=== PATIENT | female | born 1935 | race Caucasian/White ===

== ENCOUNTER → 2017-10-10 | Outpatient (CLI) | payer MEDICARE ==
[~2017-10-10] MED LIST: OMNIPAQUE 350 MG/ML, 100ML BOTTLE ONE; SIMV20TA3 PO
== END | disposition home or self-care (01) ==
LOC: CFH 11:44
PROVIDERS: ATTEND Internal Medicine
DX: K76.89 Other specified diseases of liver (principal); R63.4 Abnormal weight loss; R13.10 Dysphagia, unspecified; R68.81 Early satiety
CPT/HCPCS: 71260; 74160; 82565; Q9967

== ENCOUNTER → 2017-10-11 | Outpatient (CLI) | payer MEDICARE ==
[~2017-10-11] MED LIST changes: -OMNIPAQUE 350 MG/ML, 100ML BOTTLE ONE
== END | disposition home or self-care (01) ==
LOC: PETCFH 07:59
PROVIDERS: ATTEND Internal Medicine
DX: R68.81 Early satiety (principal); R13.10 Dysphagia, unspecified
CPT/HCPCS: 78264; A9541

== ENCOUNTER 2018-12-27 09:47 | Outpatient (CLI) | payer MEDICARE | END 2018-12-27 23:59 | disposition home or self-care (01) | LOC: RAD 09:47 | PROVIDERS: ATTEND Internal Medicine | DX: R13.11 Dysphagia, oral phase (principal) | CPT/HCPCS: 74230 ==

== ENCOUNTER → 2019-01-17 | Outpatient (CLI) | payer MEDICARE | END | disposition home or self-care (01) | LOC: CFH 10:37 | PROVIDERS: ATTEND Internal Medicine | DX: R13.10 Dysphagia, unspecified (principal) ==

== ENCOUNTER → 2019-12-09 | Outpatient (CLI) | payer MEDICARE, OTHER ==
[~2019-12-09] MED LIST changes: +ALPR0.25 PO; +DORZ10DR27 LEFTEYE; +IBUP200C8 PO; +LATA2.5D3 EACHEYE; +LEVO50TA5 PO; +SIMV20TA19 PO; -SIMV20TA3 PO
== END | disposition home or self-care (01) ==
LOC: STAR 13:46
PROVIDERS: ATTEND Internal Medicine
DX: Z01.818 Encounter for other preprocedural examination (principal); R13.10 Dysphagia, unspecified; R94.31 Abnormal electrocardiogram [ECG] [EKG]
CPT/HCPCS: 93005

== ENCOUNTER 2019-12-17 07:21 | Day surgery (SDC) | payer MEDICARE ==
[~2019-12-17] VITALS: Ht 167.6 cm; Wt 52.0 kg
[2019-12-17 07:48] VITALS: BP 120/80
[2019-12-17] MEDS ORDERED: LACTATED RINGERS 1,000 ML IV SCH (07:49)
[2019-12-17] MEDS ORDERED: CHLORHEXIDINE 15 ML UDC MM ONE (08:00)
[2019-12-17] MEDS ORDERED: CHLORHEXIDINE 15 ML UDC ONE (08:10)
[2019-12-17] MEDS ORDERED: PROMETHAZINE 25 MG/ML, 1ML IVPush PRN (08:30)
[2019-12-17] MEDS ORDERED: OXYcodone 5 MG/5 ML ORAL.SOL UDC PO PRN (08:30)
[2019-12-17] MEDS ORDERED: ACETAMINOPHEN 325 MG TABLET PO PRN (08:30)
[2019-12-17] MEDS ORDERED: FENTANYL PF 100 MCG/2ML IV PRN (08:30)
[2019-12-17] MEDS ORDERED: PROPOFOL 10 MG/ML, 20ML ONE ×2 (09:35)
[2019-12-17] MEDS ORDERED: LIDOCAINE-MPF 2% ,5ML ONE (09:35)
== END 2019-12-17 10:55 | disposition home or self-care (01) ==
LOC: OUT 07:21
PROVIDERS: ATTEND Internal Medicine
DX: R14.0 Abdominal distension (gaseous) (principal); K20.9 Esophagitis, unspecified; K29.50 Unspecified chronic gastritis without bleeding; J44.9 Chronic obstructive pulmonary disease, unspecified; Z79.1 Long term (current) use of non-steroidal anti-inflammatories (NSAID); Z79.890 Hormone replacement therapy; Z88.8 Allergy status to other drugs, medicaments and biological substances; Z98.890 Other specified postprocedural states
CPT/HCPCS: 43239; 88305; J2704; J7120